=== PATIENT | male | born 2000 | race Caucasian/White ===

== ENCOUNTER 2018-08-15 08:44 | Emergency (ER) | payer MEDICAID ==
[~2018-08-15] VITALS: Ht 172.7 cm; Wt 54.5 kg
[2018-08-15 08:48] VITALS: Ht 172.7 cm; Wt 54.5 kg
[2018-08-15 10:01] VITALS: BP 122/66
== END 2018-08-15 09:53 | disposition home or self-care (01) ==
LOC: D.ER 08:44
DX: S60.221A Contusion of right hand, initial encounter (principal); W18.30XA Fall on same level, unspecified, initial encounter; Y93.89 Activity, other specified; Y92.89 Other specified places as the place of occurrence of the external cause